=== PATIENT | male | born 1985 | race Caucasian/White ===

== ENCOUNTER → 2017-04-06 | Outpatient (CLI) | payer BC ==
--- NOTE | 2017-04-06 13:56 | FL ---
EXAMINATION TYPE: FL arthrogram shoulder RT DATE OF EXAM: 04/06/2017 HISTORY: Pain Comparison: None. 2min 29sec fluoro , 2 images Preliminary film of the right shoulder reveals no distinct abnormality. Informed consent was obtained and all the patient's questions were answered. Utilizing standard steri le technique the right shoulder joint was localized. Local anesthesia was obtained with 1% lidocaine. 22-gauge spinal needle was introduced into the region of the right shoulder joint. A mixture of 5 cc Omnipaque 240, 5 cc normal saline, 5 cc lidocaine and 1 cc gadolinium was utilized and approximately 8 cc were injected. The patient tolerated the procedure well and was sent to the MRI suite for further imaging. IMPRESSION: 1. Right shoulder arthrogram
--- NOTE | 2017-04-08 13:05 | MR ---
EXAMINATION TYPE: MR arthrogram right shoulder DATE OF EXAM: 04/06/2017 COMPARISON: Correlation arthrogram images same day HISTORY: 32-year-old male with right shoulder pain Technique: Multiplanar, multisequence images of the right shoulder were obtained after intra-articula r injection of gadolinium mixture. FINDINGS: There are some technical limitations of the exam. On some sequences, the intra-articular space is mor e hypointense than expected suggesting access concentrated gadolinium. Subscapularis tendon appears intact. The long head biceps tendon remains appropriately situated along the bicipital. There is suggestion o f an interstitial tear of the extracapsular portion. AC joint is intact. There is mild heterogeneity of the supraspinatus and infraspinatus tendons without any high-grade par tial or full-thickness tear identified. However, injected contrast does extend into the lateral deltoid shelf and trace subacromial bursal ef fusion is present. No atrophy of the rotator cuff musculature. No discrete tear of the superior labrum. However, there is apparent detachment of the anterior from the glenoid margin and suggestion of some minimal adjacent cartilage injury as well, for example, images 14. There are several cysts curvilinea r redundant fibers just deep to the subscapularis tendon within the anterior glenohumeral joint which could represent some torn redundant fibers of the middle glenohumeral ligament the axillary recess/a nterior inferior glenohumeral ligament appears thickened. Again, limitations due to dark intra-articu lar signal. No Hill-Sachs deformity is identified. No os acromiale. No suspicious bone marrow replacement seen th ough there is patchy red marrow hyperplasia likely relating to patient's young age. IMPRESSION: 1. Technical limitations due to excess injected gadolinium resulting in dark intra-articular signal. 2. While injected contrast has made its way into the subacromial/subdeltoid bursa, no avi rotator c uff tear is identified to account for this finding. There is no sizable rotator cuff interval tear id entified either. Contrast in this location may be on an iatrogenic basis. 3. Findings suspicious for a detached anterior labrum and possible torn and redundant middle glenohum eral ligament. Thickened anterior inferior glenohumeral ligament suggests chronic ligamentous sprain. There may a small adjacent cartilaginous injury just adjacent involving the anterior glenoid. 4. Small interstitial tear of the extracapsular long head biceps tendon.
== END ==
LOC: RADFLMAIN 12:42
PROVIDERS: ATTEND Nurse Practitioner Family
DX: S46.111A Strain of muscle, fascia and tendon of long head of biceps, right arm, initial encounter (principal)
CPT/HCPCS: 23350; 73040; 73222; J2001; Q9966; A9577

== ENCOUNTER → 2017-04-17 | Outpatient (CLI) | payer BC ==
--- NOTE | 2017-04-17 10:52 | US ---
EXAMINATION TYPE: US abdomen complete DATE OF EXAM: 04/17/2017 COMPARISON: NONE CLINICAL HISTORY: R10.02 Abd Pain. EXAM MEASUREMENTS: Liver Length: 18.2 cm Gallbladder Wall: 0.2 cm CBD: 0.3 cm Spleen: 13.5 cm Right Kidney: 12.1 x 5.0 x 5.4 cm Left Kidney: 12.4 x 5.4 x 4.8 cm Patient of large body habitus with extensive midline bowel gas limiting study Pancreas: Obscured by bowel gas Liver: Increased attenuation, decreased visualization of vessels suggestive of fatty infiltrate, hep atomegaly Gallbladder: wnl Evidence for sonographic Luna's sign: No CBD: wnl Spleen: splenomegaly Right Kidney: Inferior pole obscured by bowel gas Left Kidney: Superior pole obscured by bowel gas Upper IVC: wnl Abd Aorta: Bifurcation obscured by overlying bowel gas Preliminary results phoned to Olya at office immediately following exam. The liver is heterogenous which may reflect fatty liver. The intrahepatic portion of the IVC and prox imal abdominal aorta are within normal limits. There is no evidence of cholelithiasis. Common bile duct is unremarkable. The visualized portions of the pancreas are homogenous. The spleen is mildly enlarged. Kidneys are symmetric and free of hydronephrosis. No renal lesions are seen. IMPRESSION: 1. Mild splenomegaly. 2. Hepatomegaly with probable underlying fatty liver versus diffuse hepatocellular disease.
== END | disposition home or self-care (01) ==
LOC: RADUSWWP 09:51
PROVIDERS: ATTEND Pediatrics
DX: R16.2 Hepatomegaly with splenomegaly, not elsewhere classified (principal)
CPT/HCPCS: 76700

== ENCOUNTER 2021-09-02 03:04 | Emergency (ER) | payer BC ==
[2021-09-02 03:18] VITALS: TEMP 98.6
[2021-09-02] MEDS ORDERED: SODIUM CHLORIDE 0.9% 1,000 ML IV ONE (03:37)
--- NOTE | 2021-09-02 03:41 | ED ---
General Adult HPI - General Chief complaint: Weakness Stated complaint: Hand numbness, left arm pain Time Seen by Provider: 09/02/21 03:20 Source: patient Mode of arrival: ambulatory - History of Present Illness Initial comments: This patient is a 36-year-old man who presents to be evaluated for severe leg spasms that had come on around 1 AM while he was lying in bed. The patient states that both of his legs started having spasms that were visible. He stood up to see if standing would relieve the symptoms but it did not. The patient also noticed that he was having a flushed feeling over his neck and torso. He had been well throughout the day prior to this. He had even shoveled half of a driveway tonight 11. Onset/Timin -: hour(s) Location: left, right, lower extremity Quality: other (Spasms) Consistency: now resolved Improves with: none Worsens with: none Associated Symptoms: other ([place] flush) Treatments Prior to Arrival: none - Related Data Allergies Allergy/AdvReac Type Severity Reaction Status Date / Time No Known Allergies Allergy Verified 09/02/21 03:18 Review of Systems ROS Statement: Those systems with pertinent positive or pertinent negative responses have been documented in the HPI. ROS Other: All systems not noted in ROS Statement are negative. Constitutional: Denies: fever, chills Respiratory: Denies: cough, dyspnea, wheezes Cardiovascular: Denies: chest pain, palpitations, edema Gastrointestinal: Denies: abdominal pain, nausea, vomiting Genitourinary: Denies: dysuria, hematuria Musculoskeletal: Reports: myalgia. Denies: back pain Skin: Denies: rash Neurological: Reports: paresthesias. Denies: headache, weakness, numbness Psychiatric: Reports: anxiety Past Medical History Past Medical History: No Reported History History of Any Multi-Drug Resistant Organisms: None Reported Past Surgical History: No Surgical Hx Reported Past Psychological History: No Psychological Hx Reported Smoking Status: Never smoker Past Alcohol Use History: Occasional Past Drug Use History: None Reported General Exam General appearance: alert, in no apparent distress Head exam: Present: atraumatic, normocephalic Eye exam: Present: normal appearance. Absent: scleral icterus, conjunctival injection Neck exam: Present: normal inspection Respiratory exam: Present: normal lung sounds bilaterally. Absent: respiratory distress, wheezes, rales, rhonchi, stridor Cardiovascular Exam: Present: regular rate, normal rhythm, normal heart sounds. Absent: systolic murmur, diastolic murmur, rubs, gallop GI/Abdominal exam: Present: soft. Absent: distended, tenderness, guarding, rebound, rigid Extremities exam: Present: normal inspection, normal capillary refill. Absent: pedal edema, calf tenderness Neurological exam: Present: alert. Absent: motor sensory deficit Skin exam: Present: warm, dry, intact, normal color. Absent: rash Course Vital Signs 09/02/21 03:14 Temperature 98.6 F Pulse Rate 91 Respiratory 19 Rate Blood Pressure 171/90 O2 Sat by Pulse 98 Oximetry EKG Findings - EKG Results: EKG: interpreted by OVIDIO CRESPO, sinus rhythm (Rate 85 bpm), normal axis, normal QRS, normal ST/T Medical Decision Making - Lab Data Result diagrams: 09/02/21 04:04 09/02/21 04:04 Lab Results 09/02/21 09/02/21 09/02/21 Range/Units 04:04 04:04 04:04 WBC 6.6 (3.8-10.6) k/uL RBC 5.14 (4.30-5.90) m/uL Hgb 15.0 (13.0-17.5) gm/dL Hct 43.4 (39.0-53.0) % MCV 84.4 (80.0-100.0) fL MCH 29.2 (25.0-35.0) pg MCHC 34.5 (31.0-37.0) g/dL RDW 13.9 (11.5-15.5) % Plt Count 226 (150-450) k/uL MPV 6.7 Neutrophils % 63 % Lymphocytes % 23 % Monocytes % 8 % Eosinophils % 4 % Basophils % 1 % Neutrophils # 4.2 (1.3-7.7) k/uL Lymphocytes # 1.5 (1.0-4.8) k/uL Monocytes # 0.5 (0-1.0) k/uL Eosinophils # 0.3 (0-0.7) k/uL Basophils # 0.0 (0-0.2) k/uL Sodium 139 (137-145) mmol/L Potassium 3.7 (3.5-5.1) mmol/L Chloride 105 (98-107) mmol/L Carbon Dioxide 22 (22-30) mmol/L Anion Gap 12 mmol/L BUN 16 (9-20) mg/dL Creatinine 0.77 (0.66-1.25) mg/dL Est GFR (CKD-EPI)AfAm >90 (>60 ml/min/1.73 sqM) Est GFR (CKD-EPI)NonAf >90 (>60 ml/min/1.73 sqM) Glucose 108 H (74-99) mg/dL Calcium 9.5 (8.4-10.2) mg/dL Magnesium 1.9 (1.6-2.3) mg/dL Total Bilirubin 0.6 (0.2-1.3) mg/dL AST 30 (17-59) U/L ALT 54 H (4-49) U/L Alkaline Phosphatase 73 (38-126) U/L Total Protein 7.4 (6.3-8.2) g/dL Albumin 4.7 (3.5-5.0) g/dL Urine Color Light Yellow Urine Appearance Clear (Clear) Urine pH 5.5 (5.0-8.0) Ur Specific [place] 1.016 (1.001-1.035) Urine Protein Negative (Negative) Urine Glucose (UA) Negative (Negative) Urine Ketones Negative (Negative) Urine Blood Negative (Negative) Urine Nitrite Negative (Negative) Urine Bilirubin Negative (Negative) Urine Urobilinogen <2.0 (<2.0) mg/dL Ur Leukocyte Esterase Negative (Negative) Coronavirus (PCR) (Not Detectd) 09/02/21 Range/Units 04:04 WBC (3.8-10.6) k/uL RBC (4.30-5.90) m/uL Hgb (13.0-17.5) gm/dL Hct (39.0-53.0) % MCV (80.0-100.0) fL MCH (25.0-35.0) pg MCHC (31.0-37.0) g/dL RDW (11.5-15.5) % Plt Count (150-450) k/uL MPV Neutrophils % % Lymphocytes % % Monocytes % % Eosinophils % % Basophils % % Neutrophils # (1.3-7.7) k/uL Lymphocytes # (1.0-4.8) k/uL Monocytes # (0-1.0) k/uL Eosinophils # (0-0.7) k/uL Basophils # (0-0.2) k/uL Sodium (137-145) mmol/L Potassium (3.5-5.1) mmol/L Chloride (98-107) mmol/L Carbon Dioxide (22-30) mmol/L Anion Gap mmol/L BUN (9-20) mg/dL Creatinine (0.66-1.25) mg/dL Est GFR (CKD-EPI)AfAm (>60 ml/min/1.73 sqM) Est GFR (CKD-EPI)NonAf (>60 ml/min/1.73 sqM) Glucose (74-99) mg/dL Calcium (8.4-10.2) mg/dL Magnesium (1.6-2.3) mg/dL Total Bilirubin (0.2-1.3) mg/dL AST (17-59) U/L ALT (4-49) U/L Alkaline Phosphatase (38-126) U/L Total Protein (6.3-8.2) g/dL Albumin (3.5-5.0) g/dL Urine Color Urine Appearance (Clear) Urine pH (5.0-8.0) Ur Specific [place] (1.001-1.035) Urine Protein (Negative) Urine Glucose (UA) (Negative) Urine Ketones (Negative) Urine Blood (Negative) Urine Nitrite (Negative) Urine Bilirubin (Negative) Urine Urobilinogen (<2.0) mg/dL Ur Leukocyte Esterase (Negative) Coronavirus (PCR) Not Detected (Not Detectd) Disposition Clinical Impression: Muscle spasm of both lower legs Disposition: HOME SELF-CARE Condition: Good Instructions (If sedation given, give patient instructions): Muscle Spasm (ED) Is patient prescribed a controlled substance at d/c from ED?: No Referrals: Janae Hernandez MD [Primary Care Provider] - 1-2 days
[2021-09-02 04:17] LABS: Basophils % (A) 1 %; Eosinophils # (A) 0.3 k/uL (0-0.7); Eosinophils % (A) 4 %; HCT 43.4 % (39.0-53.0); Lymphocytes # (A) 1.5 k/uL (1.0-4.8); Lymphocytes % (A) 23 %; MCH 29.2 pg (25.0-35.0); MCHC 34.5 g/dL (31.0-37.0); MCV 84.4 fL (80.0-100.0); Mean Platelet Volume 6.7; Monocytes # (A) 0.5 k/uL (0-1.0); Monocytes % (A) 8 %; Neutrophils # (A) 4.2 k/uL (1.3-7.7); Neutrophils % (A) 63 %; Platelet Count 226 k/uL (150-450); RBC 5.14 m/uL (4.30-5.90); RDW 13.9 % (11.5-15.5); WBC 6.6 k/uL (3.8-10.6)
[2021-09-02 04:34] LABS: ALT 54 U/L (4-49); AST 30 U/L (17-59); African American GFR (CKD) >90 (>60 ml/min/1.73 sqM); Albumin 4.7 g/dL (3.5-5.0); Alkaline Phosphatase 73 U/L (38-126); Anion Gap 12 mmol/L; Blood Urea Nitrogen 16 mg/dL (9-20); Calcium 9.5 mg/dL (8.4-10.2); Carbon Dioxide 22 mmol/L (22-30); Chloride 105 mmol/L (98-107); Glucose 108 mg/dL (74-99); Magnesium 1.9 mg/dL (1.6-2.3); Non-African American GFR(CKD) >90 (>60 ml/min/1.73 sqM); Potassium 3.7 mmol/L (3.5-5.1); Sodium 139 mmol/L (137-145); Total Bilirubin 0.6 mg/dL (0.2-1.3); Total Protein 7.4 g/dL (6.3-8.2)
[2021-09-02 04:38] LABS: Appearance,Urine Clear (Clear); Bilirubin,Urine Negative (Negative); Blood,Urine Negative (Negative); Color,Urine Light Yellow; Glucose,Urine (UA) Negative (Negative); Ketones,Urine Negative (Negative); Leukocyte Esterase,Urine Negative (Negative); Nitrite,Urine Negative (Negative); PH, Urine 5.5 (5.0-8.0); Protein,Urine Negative (Negative); Specific Gravity,Urine 1.016 (1.001-1.035); Urobilinogen,Urine <2.0 mg/dL (<2.0)
[2021-09-02 06:55] VITALS: BP 158/68; PULSE 80; RESP 17
== END 2021-09-02 06:54 | disposition home or self-care (01) ==
LOC: EC 03:04
DX: M62.838 Other muscle spasm (principal); Z20.822 Contact with and (suspected) exposure to COVID-19
CPT/HCPCS: 36415; 80053; 81003; 83735; 84484; 85025; 87635; 93005; 96360; 96361; 99284